=== PATIENT | male | born 1985 | race Caucasian/White ===

== ENCOUNTER 2017-03-09 23:06 | Emergency (ER) | payer MEDICAID ==
[~2017-03-09] VITALS: Ht 182.9 cm; Wt 82.0 kg
[2017-03-10] MEDS ORDERED: LIDOCAINE HCL 1% 20ML VIAL (Pyxis) INJ INFIL ONE (02:00)
[2017-03-10] MEDS ORDERED: DIPHENHYDRAMINE 50MG/ML VIAL IM STA (02:11)
[2017-03-10] MEDS ORDERED: LORAZEPAM 2MG/ML CPJ IV STA (02:11)
[2017-03-10] MEDS ORDERED: HALOPERIDOL LACTATE 5MG/ML VIAL IM STA (02:11)
[2017-03-10] MEDS: DIPHENHYDRAMINE 50MG/ML VIAL IM PRN (02:30)
[2017-03-10 04:17] VITALS: BP 125/72
== END 2017-03-10 04:18 | disposition home or self-care (01) ==
LOC: ER 23:20
DX: S31.149A Puncture wound of abdominal wall with foreign body, unspecified quadrant without penetration into peritoneal cavity, initial encounter (principal); Y35.891A Legal intervention involving other specified means, law enforcement official injured, initial encounter; T75.4XXA Electrocution, initial encounter; Y93.89 Activity, other specified; Y92.098 Other place in other non-institutional residence as the place of occurrence of the external cause
CPT/HCPCS: 96372; 96374; 99284; J1200; J1630; J2060; J3490